=== PATIENT | female | born 1970 | race American Indian/Alaskan Native ===

== ENCOUNTER 2017-02-24 11:41 | Emergency (ER) | payer SELFPAY ==
[2017-02-24] MEDS ORDERED: MOTRIN PO ONE (15:54)
--- NOTE | 2017-02-24 15:56 | Emergency Department Report ---
ED Extremity Problem HPI - General Chief complaint: Extremity Injury, Lower Stated complaint: LEG PAIN Time Seen by Provider: 02/24/17 15:37 Source: patient Mode of arrival: Ambulatory Limitations: No Limitations - History of Present Illness Initial comments: PT c/o jeet foot pain and lumps x 1-2 years. 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 PT states when she stands for long periods of time the lumps get bigger and turn red. PT States the lumps itch. PT states her feet have improved because she did not go to work for 2 days. PT states now her R knee is hurting her. MD Complaint: extremity pain -: Gradual, year(s) (1-2 ) Location: right, lower extremity, bilateral lower extremity (jeet feet ), knee ( R knee ) History of Same: Yes -: No fever Severity scale (0 -10): 9 Quality: constant Consistency: constant Improves with: elevation, rest Worsens with: weight bearing, walking, other (wearing high heels ) Associated Symptoms: denies other symptoms - Related Data Previous Rx's Medication Instructions Recorded Last Taken Type Ibuprofen [Motrin] 600 mg PO Q8H PRN #15 tablet 02/24/17 Unknown Rx traMADol [Ultram] 50 mg PO Q6HR PRN #12 tablet 02/24/17 Unknown Rx Allergies Allergy/AdvReac Type Severity Reaction Status Date / Time No Known Allergies Allergy Unverified 05/16/15 09:56 ED Review of Systems ROS: Stated complaint: LEG PAIN Other details as noted in HPI Comment: All other systems reviewed and negative Constitutional: denies: chills, fever Gastrointestinal: denies: abdominal pain, nausea, vomiting Musculoskeletal: as per HPI, arthralgia Skin: as per HPI, change in color (when standing for long periods of time, none currently ) Neurological: denies: abnormal gait ED Past Medical Hx - Past Medical History Previous Medical History?: Yes Additional medical history: Leg pain - Surgical History Past Surgical History?: Yes Additional Surgical History: brain surgery-tumor removal - Social History Smoking Status: Never Smoker Substance Use Type: None - Medications Home Medications: Home Medications Medication Instructions Recorded Confirmed Last Taken Type Ibuprofen [Motrin] 600 mg PO Q8H PRN #15 tablet 02/24/17 Unknown Rx traMADol [Ultram] 50 mg PO Q6HR PRN #12 tablet 02/24/17 Unknown Rx ED Physical Exam - General Limitations: No Limitations General appearance: alert, in no apparent distress - Head Head exam: Present: atraumatic, normocephalic, normal inspection - Eye Eye exam: Present: normal appearance, PERRL, EOMI. Absent: conjunctival injection - ENT ENT exam: Present: normal exam, normal external ear exam - Neck Neck exam: Present: normal inspection, full ROM - Respiratory Respiratory exam: Present: normal lung sounds bilaterally. Absent: respiratory distress - Cardiovascular Cardiovascular Exam: Present: regular rate, normal rhythm - GI/Abdominal GI/Abdominal exam: Present: soft. Absent: tenderness - Extremities Exam Extremities exam: Present: full ROM, normal capillary refill. Absent: tenderness, pedal edema, calf tenderness - Expanded Lower Extremity Exam Right Knee exam: Present: normal inspection, full ROM, full knee extension. Absent: tenderness, swelling, crepidus, dislocation, effusion Lower Leg exam: Present: normal inspection Ankle exam: Present: normal inspection, full ROM Foot/Toe exam: Present: full ROM. Absent: normal inspection (nodules around heel, no rash to sole of foot ), tenderness, swelling, erythema, tenderness at base of 5th metatarsal Neuro vascular tendon exam: Present: no vascular compromise Gait: Positive: observed and normal Left Knee exam: Present: normal inspection, full ROM, full knee extension. Absent: tenderness Lower Leg exam: Present: normal inspection Ankle exam: Present: normal inspection, full ROM Foot/Toe exam: Absent: normal inspection (nodules to foot, L lateral foot with scabs and excoriation ), tenderness, swelling, deformity, erythema, puncture wound, calcaneal tenderness, tenderness at base of 5th metatarsal, subungual hematoma Neuro vascular tendon exam: Present: no vascular compromise Gait: Positive: observed and normal - Back Exam Back exam: Present: normal inspection, full ROM. Absent: tenderness, CVA tenderness (R), CVA tenderness (L), muscle spasm, paraspinal tenderness, vertebral tenderness - Neurological Exam Neurological exam: Present: alert, oriented X3, normal gait - Psychiatric Psychiatric exam: Present: normal affect, normal mood - Skin Skin exam: Present: warm, dry, normal color, other (nodules to jeet feet. scratch markes to the lateral L foot, + abrasions, no signs of secondary infection ). Absent: intact ED Course Vital Signs 02/24/17 02/24/17 11:50 16:31 Temperature 98.1 F Pulse Rate 80 71 Respiratory 20 18 Rate Blood Pressure 121/82 Blood Pressure 117/78 [Right] O2 Sat by Pulse 99 98 Oximetry - Reevaluation(s) Reevaluation #1: 02/24/17 16:56 PT aware of XR Dx. PT states her mother has bad arthritis. PT states that sometimes her hands feel stiff. PT aware she will need to follow up with PCP. PT has no questions at this time. - Pulse Oximetry Interpretation Digit-Finger Initial Pulse Oximetry Readin Actions Taken: none ED Medical Decision Making - Radiology Data Radiology results: report reviewed XR feet - heel spurs jeet, and OA XR R knee- degenerative changes - Differential Diagnosis OA, RA nodules, ganglion cyst Critical Care Time: No Critical care attestation.: If time is entered above; I have spent that time in minutes in the direct care of this critically ill patient, excluding procedure time. ED Disposition Clinical Impression: Acute pain of right knee, Need for Tdap vaccination Heel spur Qualifiers: Laterality: unspecified laterality Qualified Code(s): M77.30 - Calcaneal spur, unspecified foot Osteoarthritis Qualifiers: Osteoarthritis location: unspecified site Osteoarthritis type: unspecified Qualified Code(s): M19.90 - Unspecified osteoarthritis, unspecified site Disposition: DC-01 TO HOME OR SELFCARE Is pt being admited?: No Does the pt Need Aspirin: No Condition: Stable Instructions: Plantar Fasciitis (ED), Osteoarthritis (ED), Rheumatoid Arthritis (ED), Knee Pain (ED), Arthralgia (ED) Additional Instructions: Please follow up with your PCP in the next 3-5 days Wear supportive shoes. OTC Orthotics may help decrease your pain. No driving or Alcohol after taking Ulram If your feet are itching, try not to scratch them. If you scratch hard, you could break the skin and that can lead to infection. Prescriptions: Ibuprofen [Motrin] 600 mg PO Q8H PRN #15 tablet PRN Reason: Pain traMADol [Ultram] 50 mg PO Q6HR PRN #12 tablet PRN Reason: Pain Referrals: PRIMARY CARE, [Primary Care Provider] - 3-5 Days LOLIS ROSE MD [Referring] - 3-5 Days RIDDHI GALLEGO MD [Staff Physician] - 3-5 Days [facility] [Outside] - 3-5 Days Forms: Work/School Release Form(ED) Time of Disposition: 17:01
[2017-02-24] MEDS ORDERED: BOOSTRIX IM ONE (15:57)
--- NOTE | 2017-02-24 16:13 | XRay Report ---
Bilateral feet: History: Pain. Findings: Arthritic changes are noted at the intertarsal joints and first tarsal metatarsal and second tarsal metatarsal joint the right and left foot. Arthritic changes also noted of the metatarsophalangeal joint right and left great toe and at the interphalangeal joints of second third fourth and fifth toes. No periosteal reaction lytic lesion or soft tissue calcification. Plantar and dorsal spur posterior calcaneum bilaterally. Impression: Arthritic changes bilaterally as detailed above.
--- NOTE | 2017-02-24 16:25 | XRay Report ---
Right knee 2 views: History: Pain and crepitus. Findings: Spine 2 superior patella. Minimal leg in the lateral compartment of the knee joint. Probable early degenerative changes cannot be excluded. No soft tissue calcification. No joint effusion. Impression: Degenerative changes lateral and patellofemoral compartment knee joint.
[2017-02-24 16:33] VITALS: BP 117/78
== END 2017-02-24 17:21 | disposition home or self-care (01) ==
LOC: ED 11:41
DX: M77.52 Other enthesopathy of left foot and ankle (principal); M77.51 Other enthesopathy of right foot and ankle; M19.90 Unspecified osteoarthritis, unspecified site
CPT/HCPCS: 90471; 90715; 99283

== ENCOUNTER 2019-03-14 05:57 | Emergency (ER) | payer BC, OTHER ==
[2019-03-14 06:17] VITALS: BP 118/72
--- NOTE | 2019-03-14 06:47 | Emergency Department Report ---
ED General Adult HPI - General Chief complaint: Urogenital-Female Stated complaint: LEFT BREAST PAIN Time Seen by Provider: 03/14/19 06:41 Source: patient Mode of arrival: Ambulatory Limitations: No Limitations - History of Present Illness Initial comments: 48-year-old female to emergency department complaining of continued left breast pain. She brings the results throbbing pain, which is fluctuant over the last several weeks to months. She is initially initially evaluated at [facility] in November when they did ultrasound of the left breast and had been doing serial ultrasounds since that time. She says she's taken some antibodies which did help, but now that she is getting a reemergence of all redness, pain and swelling. The area is dull, throbbing, and tender to touch but there she denies any discharge. She reports no fever, chills, sweats. No chest pain or palpitations. No neck pain or headache has been appreciated. Been she is t aking other medications as prescribed with no complications, trauma, or diarrhea. She does not have a primary care Provider but has been routinely going to the outpatient [facility] clinic Radiation: non-radiation Quality: dull Consistency: constant Improves with: medication Associated Symptoms: denies: confusion, chest pain, cough, diaphoresis, loss of appetite, nausea/vomiting, shortness of breath, syncope, weakness - Related Data Previous Rx's Medication Instructions Recorded Last Taken Type Ibuprofen [Motrin] 600 mg PO Q8H PRN #15 tablet 02/24/17 Unknown Rx traMADol [Ultram] 50 mg PO Q6HR PRN #12 tablet 02/24/17 Unknown Rx Clindamycin [Clindamycin CAP] 300 mg PO Q8H #21 cap 07/27/18 Unknown Rx HYDROcodone/ACETAMINOPHEN [[place] 1 each PO Q6H PRN #12 tablet 07/27/18 Unknown Rx 5-325 Tablet] Dicloxacillin Sodium 500 mg PO QID #56 capsule 03/14/19 Unknown Rx predniSONE [Deltasone] 50 mg PO QDAY #5 tab 03/14/19 Unknown Rx Allergies Allergy/AdvReac Type Severity Reaction Status Date / Time No Known Allergies Allergy Unverified 05/16/15 09:56 ED Review of Systems ROS: Stated complaint: LEFT BREAST PAIN Other details as noted in HPI Comment: All other systems reviewed and negative ED Past Medical Hx - Past Medical History Previous Medical History?: Yes Additional medical history: Leg pain - Surgical History Past Surgical History?: Yes Additional Surgical History: brain surgery-tumor removal - Social History Smoking Status: Never Smoker Substance Use Type: None - Medications Home Medications: Home Medications Medication Instructions Recorded Confirmed Last Taken Type Ibuprofen [Motrin] 600 mg PO Q8H PRN #15 tablet 02/24/17 Unknown Rx traMADol [Ultram] 50 mg PO Q6HR PRN #12 tablet 02/24/17 Unknown Rx Clindamycin [Clindamycin CAP] 300 mg PO Q8H #21 cap 07/27/18 Unknown Rx HYDROcodone/ACETAMINOPHEN [[place] 1 each PO Q6H PRN #12 tablet 07/27/18 Unknown Rx 5-325 Tablet] Dicloxacillin Sodium 500 mg PO QID #56 capsule 03/14/19 Unknown Rx predniSONE [Deltasone] 50 mg PO QDAY #5 tab 03/14/19 Unknown Rx ED Physical Exam - General Limitations: No Limitations General appearance: alert, in no apparent distress - Head Head exam: Present: atraumatic, normocephalic - Eye Eye exam: Present: normal appearance, EOMI - ENT ENT exam: Present: mucous membranes moist - Neck Neck exam: Present: normal inspection - Respiratory Respiratory exam: Present: normal lung sounds bilaterally, chest wall tenderness (tenderness of the left breast. There is some erythema and then lump/fluctuant mass to the lateral aspect outside of the area, lower. No orange peel no dimpling, no discharge. No lymphadenopathy. Normal tail of [place]). Absent: respiratory distress - Cardiovascular Cardiovascular Exam: Present: regular rate, normal rhythm. Absent: systolic murmur, diastolic murmur, rubs, gallop - GI/Abdominal GI/Abdominal exam: Present: soft, normal bowel sounds - Extremities Exam Extremities exam: Present: normal inspection - Back Exam Back exam: Present: normal inspection - Neurological Exam Neurological exam: Present: alert, oriented X3 - Psychiatric Psychiatric exam: Present: normal affect, normal mood - Skin Skin exam: Present: warm, dry, intact, normal color. Absent: rash ED Course Vital Signs 03/14/19 06:02 Temperature 97.6 F Pulse Rate 84 Respiratory 18 Rate Blood Pressure 118/72 O2 Sat by Pulse 97 Oximetry ED Medical Decision Making - Medical Decision Making [id number] female presents to the metformin today stating she wants her breast just to be taken care of, so it is all done evaluated her records from [facility] advised her that there routine follow-up was warranted and appropriate. She has been following up with them every few weeks getting repeat ultrasounds. While she was taken her anabiotic's abscess size has significantly decreased. They evaluated her as having a complex cyst that has been responsive to anabiotic/ultrasound was in 02/21/2019 and showed a significant reduction in size. She shortly after that time. Head completed. Her antibody regimen of what she states was 10-11 days and now the last couple days, having getting a reemergence of the swelling, redness more frustrated. Critical care attestation.: If time is entered above; I have spent that time in minutes in the direct care of this critically ill patient, excluding procedure time. ED Disposition Clinical Impression: Breast infection in female Disposition: DC-01 TO HOME OR SELFCARE Is pt being admited?: No Does the pt Need Aspirin: No Condition: Stable Instructions: Breast Mass (ED) Additional Instructions: Parag to follow-up with her doctors at [facility] as they recommended continue previous visit for further evaluation and definitive management. It is likely as he may need surgical intervention at this does not respond as we discuss
[2019-03-14] MEDS ORDERED: XYLOCAINE 1% MPF 5 mL INFILTRATI ONE (06:48)
[2019-03-14] MEDS ORDERED: ROCEPHIN IM STA (06:48)
== END 2019-03-14 07:43 | disposition home or self-care (01) ==
LOC: ED 05:57
DX: N61.1 Abscess of the breast and nipple (principal); Z98.890 Other specified postprocedural states; Z79.899 Other long term (current) drug therapy
CPT/HCPCS: 96372; 99282; J0696